=== PATIENT | female | born 1995 ===

== ENCOUNTER 2016-09-09 12:03 | Emergency (ER) | payer MEDICAID ==
--- NOTE | 2016-09-09 13:20 | C.PDOC ---
History Of Present Illness 21 yr old female presents to the ER with complaints of crampy abdominal pain, vomiting, generalized malaise and dizziness for the past 2 days. Patient reports irregular menses, LMP was 2 months ago. Patient states she took a home test 3 weeks ago which was negative. Patient denies fever, chest pain , SOB, nausea, diarrhea, dysuria, vaginal discharge or bleeding. Time Seen by Provider: 09/09/16 12:19 Chief Complaint (Nursing): Abdominal Pain History Per: Patient History/Exam Limitations: no limitations Onset/Duration Of Symptoms: Days (2) Current Symptoms Are (Timing): Still Present Past Medical History Reviewed: Historical Data, Nursing Documentation, Vital Signs Vital Signs: Last Vital Signs Temp 98.3 F 09/09/16 16:29 Pulse 66 09/09/16 16:29 Resp 18 09/09/16 16:29 BP 100/54 L 09/09/16 16:29 Pulse Ox 100 09/09/16 16:29 - Medical History PMH: Anxiety Family History: States: No Known Family Hx - Social History Hx Tobacco Use: Yes Hx Alcohol Use: Yes Hx Substance Use: No - Immunization History Hx Tetanus Toxoid Vaccination: No Hx Influenza Vaccination: No Hx Pneumococcal Vaccination: No Review Of Systems Constitutional: Positive for: Malaise (Generalized). Negative for: Fever Cardiovascular: Negative for: Chest Pain Respiratory: Negative for: Shortness of Breath Gastrointestinal: Positive for: Vomiting, Abdominal Pain. Negative for: Nausea , Diarrhea Genitourinary: Negative for: Dysuria, Vaginal Discharge, Vaginal Bleeding Neurological: Positive for: Dizziness Physical Exam - Physical Exam Appears: Non-toxic, No Acute Distress Skin: Warm, Dry, No Rash Head: Atraumatic, Normacephalic Eye(s): bilateral: Normal Inspection, PERRL, EOMI Oral Mucosa: Moist Neck: Normal, Normal ROM, No Supple Chest: Symmetrical, No Tenderness Cardiovascular: Rhythm Regular, No Murmur Respiratory: Normal Breath Sounds, No Rales, No Rhonchi, No Stridor, No Wheezing Gastrointestinal/Abdominal: Soft, Tenderness (Diffuse but concentrated to superpubic and epigastric ), No Guarding, No Rebound Back: CVA Tenderness (Right ) Extremity: Normal ROM, No Swelling Neurological/Psych: Oriented x3, Normal Speech, Normal Cognition ED Course And Treatment - Laboratory Results Result Diagrams: 09/09/16 13:28 09/09/16 13:28 O2 Sat by Pulse Oximetry: 100 (RA ) Pulse Ox Interpretation: Normal - CT Scan/US US - Trasvaginal Other Rad Studies (CT/US): Read By Radiologist, Radiology Report Reviewed CT/US Interpretation: Indication: Abdominal pain. Comparison: Ob transvaginal ultrasound performed 02/11/16. Technique: Real-time transabdominal pelvic ultrasound was performed. In addition a transvaginal pelvic ultrasound was necessary to better depict pelvic anatomy. Findings: The uterus measures approximately 10.5 x 5.6 x 8.0 cm. Cervix length measures approximately 3.8 cm. There is a single intrauterine fetus present. 1 mm yolk sac. The gestational sac measures 1.6 and is compatible with a gestational age of 5 weeks 6 days. The crown-rump length measures 0.3 cm and is compatible with a gestational age of 5 weeks 6 days. There is heart motion which measured 111.2 BPM. The right ovary measures 3.3 x 1.7 x 3.4 cm. The left ovary measures 3.6 x 2.3 x 3.0 cm. Blood flow was demonstrated to both ovaries. Impression: Live single intrauterine with estimated gestational age 5 weeks 6 days. heart rate 111.2 bpm. Advise an anomaly screen at 16-18 weeks gestational age. Medical Decision Making Medical Decision Making: PLAN: * US - Transvaginal * CBC * CMP * BETA * HCG * Urinalysis * Pepcid IVP * Dextrose IV 412 pm pt with +iup, no cysts, still with mild left lower quad tender, no rebound or guarding. will d/c with precaution, f/u obgyn nurse theresa. Disposition Counseled Patient/Family Regarding: Studies Performed, Diagnosis, Need For Followup, Rx Given - Disposition Referrals: [facility] [Outside] [facility] [Outside] Disposition: HOME/ ROUTINE Disposition Time: 16:14 Condition: STABLE Additional Instructions: Follow up with [facility] as soon as possible; call [facility] to help you make an appointment. Drink increased fluids. Return to ER for any worse pain, dizziness. fainting. vaginal bleeding or other cocnerns. Prescriptions: 21/Iron Fu/Folic Acid [ Complete Caplet] 1 each PO DAILY #30 tablet Instructions: (ED) Forms: [facility] (Kazakh), General Discharge Instructions Print Language: SLOVENIAN - Clinical Impression Clinical Impression: at early stage - PA / GRANITE SETTER / Resident Statement MD/DO has reviewed & agrees with the documentation as recorded. - Scribe Statement The provider has reviewed the documentation as recorded by the Scribe Lashae Rushing All medical record entries made by the Scribe were at my direction and personally dictated by me. I have reviewed the chart and agree that the record accurately reflects my personal performance of the history, physical exam, medical decision making, and the department course for this patient. I have also personally directed, reviewed, and agree with the discharge instructions and disposition.
[2016-09-09 13:35] LABS: BASO % 0.8 % (0.0-2.0); EOS # 0.2 K/uL (0.0-0.7); EOS % 3.7 % (0.0-4.0); HEMOGLOBIN 11.2 g/dL (11.0-16.0); LYMPH % 34.6 % (20.0-40.0); MEAN CELL VOLUME 92.9 fL (81.0-99.0); MEAN CORPUSCULAR HGB CONC 33.4 g/dL (33.0-37.0); MEAN PLATELET VOLUME 9.2 fL (7.2-11.7); MONO # 0.6 K/uL (0.0-0.8); MONO % 10.4 % (0.0-10.0); NEUT % 50.5 % (50.0-75.0); NRBC % 0.1 % (0.0-2.0); RBC 3.62 Mil/uL (3.80-5.20); RED CELL DISTRIBUTION WIDTH 12.2 % (11.5-14.5); WHITE BLOOD COUNT 5.9 K/uL (4.8-10.8)
[2016-09-09 13:40] LABS: HCG,QUALITATIVE URINE POSITIVE (NEGATIVE)
[2016-09-09 13:43] LABS: ALBUMIN 3.9 g/dL (3.5-5.0); SQUAMOUS EPITHIAL 17 /hpf (0-5); URINE BILIRUBIN NEGATIVE (NEGATIVE); URINE BLOOD NEGATIVE (NEGATIVE); URINE CLARITY Clear (Clear); URINE COLOR Yellow (YELLOW); URINE GLUCOSE (UA) NORMAL (Normal); URINE LEUKOCYTE ESTERASE NEG Leu/uL (Negative); URINE NITRATE NEGATIVE (NEGATIVE); URINE PROTEIN NEGATIVE (NEGATIVE)
[2016-09-09] MEDS ORDERED: Dextrose 5%/0.9% NS 1,000 ML IV ONE (13:44)
[2016-09-09 13:46] LABS: GFR AFRICAN-AMERICAN > 60; GFR NON-AFRICAN AMERICAN > 60
[2016-09-09 13:47] LABS: ALB/GLOB RATIO 1.5 (1.0-2.1); ALT/SGPT 22 U/L (9-52); AST/SGOT 14 U/L (14-36); BLOOD UREA NITROGEN 5 mg/dL (7-17); CALCIUM 8.8 mg/dl (8.6-10.4); LIPASE 47 U/L (23-300)
[2016-09-09 14:23] VITALS: O2SAT 100
--- NOTE | 2016-09-09 14:50 | US ---
Indication: Abdominal pain Comparison: Ob transvaginal ultrasound performed 02/11/16 Technique: Real-time transabdominal pelvic ultrasound was performed. In addition a transvaginal pelvic ultrasound was necessary to better depict pelvic anatomy. Findings: The uterus measures approximately 10.5 x 5.6 x 8.0 cm. Cervix length measures approximately 3.8 cm. There is a single intrauterine fetus present. 1 mm yolk sac. The gestational sac measures 1.6 and is compatible with a gestational age of 5 weeks 6 days. The crown-rump length measures 0.3 cm and is compatible with a gestational age of 5 weeks 6 days. There is heart motion which measured 111.2 BPM. The right ovary measures 3.3 x 1.7 x 3.4 cm. The left ovary measures 3.6 x 2.3 x 3.0 cm. Blood flow was demonstrated to both ovaries. Impression: Live single intrauterine with estimated gestational age 5 weeks 6 days. heart rate 111.2 bpm. Advise an anomaly screen at 16-18 weeks gestational age
[2016-09-09 16:30] VITALS: BP 100/54; PULSE 66; RESP 18; TEMP 98.3
== END 2016-09-09 16:32 | disposition home or self-care (01) ==
LOC: C.ER 12:03
DX: O26.891 Other specified pregnancy related conditions, first trimester (principal); Z3A.01 Less than 8 weeks gestation of pregnancy
CPT/HCPCS: 76805; 76817; 80053; 81001; 82009; 83690; 84702; 84703; 85025; 87086; 96361; 96374; 99284; J7042

== ENCOUNTER 2016-09-15 17:55 | Emergency (ER) | payer MEDICAID ==
[2016-09-15 18:07] VITALS: RESP 20; TEMP 98.1; O2SAT 100
[2016-09-15] MEDS ORDERED: Sodium Chloride 0.9% 1,000 ML IV ONE ×2 (18:13→20:10)
--- NOTE | 2016-09-15 18:13 | C.PDOC ---
History Of Present Illness Patient is a 21 year old female, [id number], presents to the Emergency Department for evaluation of nausea, multiple episodes of vomiting, and suprapubic abdominal pain for the past several days. Patient states that she recently found out she was 5 weeks . Notes having 6 episodes of vomiting yesterday and 2 episodes today. States she is not tolerating any PO intake. Patient also complains of dizziness, and states she feels like she will fall. Otherwise, denies any vaginal discharge, vaginal bleeding, diarrhea, urinary symptoms, headache, fever, chills, or any other associated symptoms at this time. Chief Complaint (Nursing): Abdominal Pain History Per: Patient History/Exam Limitations: no limitations Onset/Duration Of Symptoms: Days (3) Current Symptoms Are (Timing): Still Present Severity: Severe Pain Scale Rating Of: 8 Location Of Pain/Discomfort: Suprapubic Radiation Of Pain To:: None Quality Of Discomfort: "Pain" Associated Symptoms: Nausea, Vomiting. denies: Fever, Chills, Diarrhea, Loss Of Appetite, Back Pain, Chest Pain, Constipation, Urinary Symptoms Exacerbating Factors: None Alleviating Factors: None Recent travel outside of the [place]: No Additional History Per: Patient Abnormal Vaginal Bleeding: No : 4 Para: 1 Miscarriage: 1 Past Medical History Reviewed: Historical Data, Nursing Documentation, Vital Signs Vital Signs: Last Vital Signs Temp 98.1 F 09/15/16 18:01 Pulse 72 09/15/16 18:01 Resp 20 09/15/16 18:01 BP 111/74 09/15/16 18:01 Pulse Ox 100 09/15/16 18:38 - Medical History PMH: Anxiety Denies: Diabetes, Hepatitis, HIV, HTN, Seizures, Sexually Transmitted Disease Family History: States: Unknown Family Hx - Social History Hx Tobacco Use: Yes Hx Alcohol Use: Yes Hx Substance Use: No - Immunization History Hx Tetanus Toxoid Vaccination: No Hx Influenza Vaccination: No Hx Pneumococcal Vaccination: No Review Of Systems Except As Marked, All Systems Reviewed And Found Negative. Constitutional: Negative for: Fever, Chills Cardiovascular: Negative for: Chest Pain, Palpitations Respiratory: Negative for: Cough, Shortness of Breath Gastrointestinal: Positive for: Nausea, Vomiting, Abdominal Pain. Negative for : Diarrhea, Constipation Genitourinary: Negative for: Dysuria, Frequency, Incontinence, Hematuria, Vaginal Discharge, Vaginal Bleeding Musculoskeletal: Negative for: Neck Pain, Back Pain Skin: Negative for: Rash, Bruising Neurological: Positive for: Dizziness. Negative for: Weakness, Numbness, Headache Physical Exam - Physical Exam Appears: Non-toxic, No Acute Distress Skin: Normal Color, Warm, Dry Head: Atraumatic, Normacephalic Eye(s): bilateral: Normal Inspection Oral Mucosa: Moist Neck: Normal ROM, Supple Cardiovascular: Rhythm Regular, No Murmur Respiratory: Normal Breath Sounds, No Rales, No Rhonchi, No Wheezing Gastrointestinal/Abdominal: Normal Exam, Soft, No Tenderness, No Guarding, No Rebound Back: Normal Inspection, No CVA Tenderness Extremity: Bilateral: Atraumatic, Normal ROM Neurological/Psych: Oriented x3, Normal Speech, Normal Cognition ED Course And Treatment O2 Sat by Pulse Oximetry: 100 (RA) Pulse Ox Interpretation: Normal Medical Decision Making Medical Decision Making: Impression: 21 year old female, [id number], presents to ED for evaluation of nausea, multiple episodes of vomiting, and suprapubic abdominal pain for the past several days. Plan: * Blood work * Urinalysis * Zofran * Pepcid * IV fluids * Reassess and disposition Progress note: Patient is resting comfortably, abdomen remains soft, and non- tender. Disposition - Disposition Disposition Time: 18:38 Condition: STABLE Forms: [facility] (Nauruan) - POA Present On Arrival: None - Clinical Impression Clinical Impression: Hyperemesis gravidarum - Scribe Statement The provider has reviewed the documentation as recorded by the Alice Nelson All medical record entries made by the Alice were at my direction and personally dictated by me. I have reviewed the chart and agree that the record accurately reflects my personal performance of the history, physical exam, medical decision making, and the department course for this patient. I have also personally directed, reviewed, and agree with the discharge instructions and disposition. Physician Patient Turnover Patient Signed Over To: Afsaneh Lewis Handoff Comments: patient with vomiting, hyperemesis, pending labs, IV fluids, re-eval
[2016-09-15] MEDS ORDERED: Sodium Chloride 0.9% 1,000 ML ONE ×2 (18:32→20:20)
[2016-09-15 18:55] LABS: SQUAMOUS EPITHIAL 16 /hpf (0-5); URINE AMORPHOUS SEDIMENT OCC /ul (<OCC); URINE BACTERIA FEW (<OCC); URINE BILIRUBIN NEGATIVE (NEGATIVE); URINE BLOOD NEGATIVE (NEGATIVE); URINE CLARITY Turbid (Clear); URINE COLOR Amber (YELLOW); URINE GLUCOSE (UA) NORMAL (Normal); URINE NITRATE NEGATIVE (NEGATIVE); URINE PROTEIN 1+ mg/dL (NEGATIVE); URINE UROBILINOGEN NORMAL mg/dL (0.2-1.0)
[2016-09-15 18:56] LABS: URINE LEUKOCYTE ESTERASE 1+ Leu/uL (Negative)
[2016-09-15 21:37] VITALS: BP 112/65; PULSE 68
== END 2016-09-15 21:34 | disposition home or self-care (01) ==
LOC: C.ER 17:55
DX: O21.0 Mild hyperemesis gravidarum (principal); O23.41 Unspecified infection of urinary tract in pregnancy, first trimester; Z3A.01 Less than 8 weeks gestation of pregnancy
CPT/HCPCS: 81001; 82009; 84702; 84703; 96374; 96375; 99284; J2405; J2765; J7040

== ENCOUNTER 2016-10-09 08:37 | Emergency (ER) | payer MEDICAID ==
[2016-10-09] MEDS ORDERED: Sodium Chloride 0.9% 1,000 ML IV ONE (08:53)
[2016-10-09 08:57] VITALS: BP 113/70; PULSE 83; RESP 18; TEMP 98.2; O2SAT 100
--- NOTE | 2016-10-09 08:59 | C.PDOC ---
History Of Present Illness 21 yr old female who is 9 weeks , presents to the ER with complaints of anxiety and vomiting for entire . Patient has multiple visits for the same complaint and has been seen and evaluated by crisis. Patient was instructed to follow up w ith BAKERY MANAGER but states she has been unable to. Also states she is unable to afford anti nausea medicine. Patient reports of persistent nausea and vomiting in the morning since becoming . patient is requesting Benzodiazepine for her anxiety. Denies fever, chest pain, SOB, abdominal pain, dysuria, vaginal bleeding or discharge. Denies homicidal or suicidal ideation Time Seen by Provider: 10/09/16 08:39 Chief Complaint (Nursing): Anxiety History Per: Patient History/Exam Limitations: no limitations Onset/Duration Of Symptoms: Persistent Current Symptoms Are (Timing): Still Present Past Medical History Reviewed: Historical Data, Nursing Documentation, Vital Signs Vital Signs: Last Vital Signs Temp 98.2 F 10/09/16 08:52 Pulse 83 10/09/16 08:52 Resp 18 10/09/16 08:52 BP 113/70 10/09/16 08:52 Pulse Ox 100 10/09/16 08:52 - Medical History PMH: Anxiety Family History: States: No Known Family Hx - Social History Hx Tobacco Use: Yes Hx Alcohol Use: Yes Hx Substance Use: No - Immunization History Hx Tetanus Toxoid Vaccination: No Hx Influenza Vaccination: No Hx Pneumococcal Vaccination: No Review Of Systems Except As Marked, All Systems Reviewed And Found Negative. Constitutional: Negative for: Fever Cardiovascular: Negative for: Chest Pain Respiratory: Negative for: Shortness of Breath Gastrointestinal: Positive for: Nausea, Vomiting. Negative for: Abdominal Pain Genitourinary: Negative for: Dysuria, Vaginal Discharge, Vaginal Bleeding Physical Exam - Physical Exam Appears: Non-toxic, No Acute Distress Skin: Warm, Dry, No Rash Head: Atraumatic, Normacephalic Oral Mucosa: Moist Chest: Symmetrical, No Tenderness Cardiovascular: Rhythm Regular, No Murmur Respiratory: Normal Breath Sounds, No Rales, No Rhonchi, No Wheezing Gastrointestinal/Abdominal: Normal Exam, Soft, No Tenderness, No Guarding, No Rebound Extremity: Normal ROM, No Swelling Neurological/Psych: Oriented x3, Normal Speech, Normal Motor ED Course And Treatment - Laboratory Results Result Diagrams: 10/09/16 09:18 10/09/16 09:18 Progress Note: Labs to rule out dehydration. Patient instructed to follow up with BAKERY MANAGER. Discussed with patient in details the risks and benefits of using anti-emetics. Medical Decision Making Medical Decision Making: PLAN: * CBC * CMP * Reglan IVP * Sodium Chloride IV Patient requesting to shower. 9:47 Potassium and phosphours replacement ordered 9:53 Patient got out of the shower and now reports that she wants to be discharged. She reports that her symptoms have improved. She reports that she will follow- up with sales floor team member and PMD Disposition - Disposition Disposition: HOME/ ROUTINE Disposition Time: 09:54 Condition: FAIR Additional Instructions: Return to ED if condition worsens. Follow-up with PMD within 2 days. Follow-up with your OB within 2 days. Eat food rich in potassium and phosphorous- like bananas. - Clinical Impression Clinical Impression: Vomiting affecting - Scribe Statement The provider has reviewed the documentation as recorded by the Alice Rushing Provider Attestation: All medical record entries made by the Maximusibandrews were at my direction and personally dictated by me. I have reviewed the chart and agree that the record accurately reflects my personal performance of the history, physical exam, medical decision making, and the department course for this patient. I have also personally directed, reviewed, and agree with the discharge instructions and disposition.
[2016-10-09] MEDS ORDERED: Sodium Chloride 0.9% 1,000 ML ONE (09:00)
[2016-10-09 09:24] LABS: BASO % 0.4 % (0.0-2.0); EOS % 0.2 % (0.0-4.0); HEMATOCRIT 35.1 % (34.0-47.0); LYMPH # 0.9 K/uL (1.0-4.3); LYMPH % 12.4 % (20.0-40.0); MEAN CELL VOLUME 91.2 fL (81.0-99.0); MEAN CORPUSCULAR HEMOGLOBIN 31.1 pg (27.0-31.0); MEAN CORPUSCULAR HGB CONC 34.1 g/dL (33.0-37.0); MEAN PLATELET VOLUME 8.9 fL (7.2-11.7); MONO # 0.3 K/uL (0.0-0.8); RED CELL DISTRIBUTION WIDTH 12.3 % (11.5-14.5); WHITE BLOOD COUNT 7.1 K/uL (4.8-10.8)
[2016-10-09 09:33] LABS: CHLORIDE 103 mmol/L (98-107); POTASSIUM 3.1 mmol/L (3.6-5.2); SODIUM 137 mmol/L (132-148)
[2016-10-09 09:35] LABS: ALB/GLOB RATIO 1.4 (1.0-2.1); ALKALINE PHOSPHATASE 38 U/L (38-126); AST/SGOT 25 U/L (14-36); BILIRUBIN,TOTAL 0.9 mg/dL (0.2-1.3); CARBON DIOXIDE 15 mmol/L (22-30); GFR AFRICAN-AMERICAN > 60; TOTAL PROTEIN 7.4 g/dL (6.3-8.3)
[2016-10-09 09:36] LABS: ALT/SGPT 25 U/L (9-52); BLOOD UREA NITROGEN 7 mg/dL (7-17); CALCIUM 9.8 mg/dl (8.6-10.4); GLUCOSE,RANDOM 133 mg/dL (65-105); MAGNESIUM 1.8 mg/dL (1.6-2.3); PHOSPHOROUS 1.5 mg/dL (2.5-4.5)
[2016-10-09] MEDS ORDERED: Potassium & Sodium Phosphate PO STA (09:38)
[2016-10-09] MEDS ORDERED: Potassium Chloride 20 mEq ER Tab PO STA (09:38)
== END 2016-10-09 10:04 | disposition home or self-care (01) ==
LOC: C.ER 08:37
DX: O21.1 Hyperemesis gravidarum with metabolic disturbance (principal); Z3A.09 9 weeks gestation of pregnancy
CPT/HCPCS: 80053; 83735; 84100; 85025; 96361; 96374; 99283; J2765; J7040

== ENCOUNTER 2016-10-13 12:13 | Emergency (ER) | payer MEDICAID ==
[2016-10-13 12:17] VITALS: BP 108/70; PULSE 75; RESP 18; TEMP 98.5; O2SAT 100
--- NOTE | 2016-10-13 15:46 | C.PDOC ---
History Of Present Illness Patient left without being seen Time Seen by Provider: 10/13/16 12:43 Chief Complaint (Nursing): Abdominal Pain Past Medical History Vital Signs: Last Vital Signs Temp 98.5 F 10/13/16 12:16 Pulse 75 10/13/16 12:16 Resp 18 10/13/16 12:16 BP 108/70 10/13/16 12:16 Pulse Ox 100 10/13/16 12:16 - Medical History PMH: Anxiety Denies: Diabetes, Hepatitis, HIV, HTN, Seizures, Sexually Transmitted Disease Family History: States: Unknown Family Hx - Social History Hx Tobacco Use: Yes Hx Alcohol Use: Yes Hx Substance Use: No - Immunization History Hx Tetanus Toxoid Vaccination: No Hx Influenza Vaccination: No Hx Pneumococcal Vaccination: No ED Course And Treatment O2 Sat by Pulse Oximetry: 100 Disposition - Disposition Disposition: LEFT W/O BEING SEEN - ER ONLY Disposition Time: 13:00 Condition: UNKNOWN Forms: [facility] (Yoruba) - Clinical Impression Clinical Impression: Abdominal pain
== END 2016-10-13 12:50 | disposition left against medical advice (07) ==
LOC: C.ER 12:13
DX: R10.9 Unspecified abdominal pain (principal); Z02.9 Encounter for administrative examinations, unspecified

== ENCOUNTER 2016-10-24 22:08 | Emergency (ER) | payer MEDICAID ==
--- NOTE | 2016-10-24 23:11 | C.PDOC ---
History Of Present Illness Pt c/o vaginal spotting. Time Seen by Provider: 10/24/16 22:32 Chief Complaint (Nursing): Female Genitourinary History Per: Patient Onset/Duration Of Symptoms: Hrs (today) Current Symptoms Are (Timing): Still Present Severity: Mild Quality Of Discomfort: Unable To Describe Alleviating Factors: None Additional History Per: Prior Records Abnormal Vaginal Bleeding: Yes Last Menstral Period: 13 weeks Past Medical History Reviewed: Historical Data, Nursing Documentation, Vital Signs Vital Signs: Last Vital Signs Temp 97.9 F 10/24/16 22:23 Pulse 86 10/24/16 22:23 Resp 18 10/24/16 22:23 BP 107/68 10/24/16 22:23 Pulse Ox 100 10/24/16 22:23 - Medical History PMH: Anxiety Family History: States: Unknown Family Hx - Social History Hx Tobacco Use: No Hx Alcohol Use: No Hx Substance Use: No - Immunization History Hx Tetanus Toxoid Vaccination: No Hx Influenza Vaccination: No Hx Pneumococcal Vaccination: No Review Of Systems Except As Marked, All Systems Reviewed And Found Negative. Constitutional: Negative for: Fever, Weakness Cardiovascular: Negative for: Chest Pain Respiratory: Negative for: Shortness of Breath Gastrointestinal: Negative for: Vomiting Genitourinary: Positive for: Vaginal Bleeding (spotting). Negative for: Dysuria Musculoskeletal: Negative for: Neck Pain Skin: Negative for: Rash Neurological: Negative for: Weakness, Numbness Physical Exam - Physical Exam Appears: Non-toxic, No Acute Distress Skin: Normal Color, Warm, Dry, No Rash Head: Atraumatic, Normacephalic Eye(s): bilateral: Normal Inspection, PERRL, EOMI Neck: Normal ROM, Supple Cardiovascular: Rhythm Regular Respiratory: Normal Breath Sounds, No Accessory Muscle Use Gastrointestinal/Abdominal: Soft, No Tenderness Back: No CVA Tenderness Extremity: Normal ROM Neurological/Psych: Oriented x3, Normal Motor, Normal Sensation ED Course And Treatment O2 Sat by Pulse Oximetry: 100 Pulse Ox Interpretation: Normal - CT Scan/US Limited TA bedside pelvic US Other Rad Studies (CT/US): U/S Performed By Nj CT/US Interpretation: No FF. Live IUP. Disposition Counseled Patient/Family Regarding: Studies Performed, Diagnosis, Need For Followup - Disposition Referrals: Orvilel Pope MD [Medical Doctor] - Disposition: HOME/ ROUTINE Disposition Time: 23:11 Condition: STABLE Additional Instructions: Follow up with your Residential Property Consultant doctor for further evaluation and treatment. Return to the ER if you develop fever, vomiting, abdominal pain, dizziness, heavy bleeding, worsening of symptoms or if you have any other concerns. Instructions: Threatened Miscarriage (ED) Forms: [facility] (Uruguayan) Print Language: BENGALI - Clinical Impression Clinical Impression: Threatened
[2016-10-24 23:22] VITALS: BP 146/79; PULSE 78; RESP 16; TEMP 98; O2SAT 98
== END 2016-10-24 23:24 | disposition home or self-care (01) ==
LOC: C.ER 22:08
DX: O20.0 Threatened abortion (principal); Z3A.13 13 weeks gestation of pregnancy

== ENCOUNTER 2017-01-21 15:26 | Emergency (ER) | payer MEDICAID ==
[2017-01-21 15:50] VITALS: BMI 24.5
[2017-01-21 16:33] LABS: RBC URINE 2 /hpf (0-3); URINE BACTERIA RARE (<OCC); URINE BILIRUBIN NEGATIVE (NEGATIVE); URINE BLOOD NEGATIVE (NEGATIVE); URINE COLOR Yellow (YELLOW); URINE GLUCOSE (UA) NORMAL (Normal); URINE KETONE TRACE mg/dL (NEGATIVE); URINE LEUKOCYTE ESTERASE NEG Leu/uL (Negative); URINE PROTEIN NEGATIVE (NEGATIVE); URINE UROBILINOGEN NORMAL mg/dL (0.2-1.0); WBC URINE 3 /hpf (0-5)
--- NOTE | 2017-01-21 21:32 | OBHP ---
Datetime: 01/21/2017 16:04 IP Adm Impression: , intrauterine IP Chief Complaint Other: Abdominal pain Admit Comment, IP Provider: Patient is a 21 year old at 26w0d by 13w5d lefty with LUPE 04/29/17 presents to L+D complaining of lower abdominal pain that started 2 weeks ago. States that she feels pressure in her vagina which causes her to walk differently. Pain is worse when at work and on her fe et overnight. Also states seeing dark red vaginal spotting in her underwear for 3 days. Admits to hav ing intercourse 2-3 days ago. Patient states that she noticed bleeding from her left nipple that she noticed on her shirt. Only happened one time today. Denies any trauma. Endorses +FM, denies LOF. Coretta ent goes to [facility] for care, last appointment was 1 month ago. Issues: Denies OB Hx: 1. 2010 at term, 6lbs 7oz, no complications 2. 2011 TOP 3. 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 Will discharge home with pret erm labor precautions. F/U with clinic tomorrow as scheduled. Discussed with attending. Attending Note (1700 hours): patient was seen, evaluated and examined by me with the Resident. I agree with the documentaiton of events as described above. Patient encouraged to invest in maternity support belt. Also explained that evaluation of bloody discharge from nipple may involve breast ultr asound and referral to breast surgeon. Patient encouraged to discuss this new occurrence at her prena kasia visit tomorrow. Patient expressed an understanding and agrees. Clinically stable. Plan: 1) as above. FHR - Baseline A Provider: 145 Contraction Comments Provider: none Comments, ACOG Physical Exam: VSS Gen: AAOX3 CV: RRR Breast: No palpable masses, no nipple discharge, symmetrical Lungs: CTA B/L Abd: Soft, gravid Ext: No clubbing, cyanosis, edema SVE: closed/thick/high SSE: No active bleeding, + cottage cheese like discharge EGA AdmitDate IP: 26.3 IP Chief Complaint: Vaginal bleeding; Other NICHD Variability Prov Fetus A: Moderate 6-25bpm NICHD Accel Fetus A IP Provider: [id number] (Annotations: Data stored by CPN on behalf of user) FHR Category Provider Fetus A: Category I NICHD Decel Fetus A IP Provider: None Dilatation, Provider: closed Effacement, Provider: thick Station, Provider: high
[2017-01-21 21:54] VITALS: PULSE 67; O2SAT 100
== END 2017-01-21 17:20 | disposition home or self-care (01) ==
LOC: C.EROB 15:26
DX: O26.852 Spotting complicating pregnancy, second trimester (principal); Z3A.26 26 weeks gestation of pregnancy

== ENCOUNTER 2017-02-17 14:18 | Emergency (ER) | payer MEDICAID ==
[2017-02-17] MEDS ORDERED: Lactated Ringer's 1,000 ML IV ONE (14:55)
[2017-02-17 15:09] VITALS: BMI 25.4
[2017-02-17 15:22] LABS: BASO % 0.3 % (0.0-2.0); EOS % 0.5 % (0.0-4.0); HEMOGLOBIN 11.7 g/dL (11.0-16.0); LYMPH # 0.8 K/uL (1.0-4.3); LYMPH % 7.8 % (20.0-40.0); MEAN CELL VOLUME 90.5 fL (81.0-99.0); MEAN CORPUSCULAR HEMOGLOBIN 31.2 pg (27.0-31.0); MEAN CORPUSCULAR HGB CONC 34.5 g/dL (33.0-37.0); MEAN PLATELET VOLUME 11.2 fL (7.2-11.7); MONO # 0.4 K/uL (0.0-0.8); NEUT # 9.4 K/uL (1.8-7.0); NEUT % 87.4 % (50.0-75.0); PLATELET COUNT 162 K/uL (130-400); RBC 3.75 Mil/uL (3.80-5.20); RED CELL DISTRIBUTION WIDTH 11.8 % (11.5-14.5); WHITE BLOOD COUNT 10.7 K/uL (4.8-10.8)
[2017-02-17 15:31] LABS: SQUAMOUS EPITHIAL 4 /hpf (0-5); URINE BILIRUBIN NEGATIVE (NEGATIVE); URINE BLOOD NEGATIVE (NEGATIVE); URINE CLARITY Clear (Clear); URINE COLOR Yellow (YELLOW); URINE GLUCOSE (UA) NORMAL (Normal); URINE LEUKOCYTE ESTERASE TRACE Leu/uL (Negative); URINE NITRATE NEGATIVE (NEGATIVE); URINE PROTEIN NEGATIVE (NEGATIVE); URINE UROBILINOGEN NORMAL mg/dL (0.2-1.0)
[2017-02-17 15:43] LABS: LYMPHOCYTE 8 % (20-40); MONOCYTE 4 % (0-10); NEUTROPHIL 88 % (50-75); TOTAL CELLS COUNTED 100
[2017-02-17 15:44] LABS: PLATELET ESTIMATE NORMAL (NORMAL)
[2017-02-17 15:46] LABS: ALB/GLOB RATIO 1.1 (1.0-2.1); ALBUMIN 3.7 g/dL (3.5-5.0); ALT/SGPT 17 U/L (9-52); AST/SGOT 34 U/L (14-36); BLOOD UREA NITROGEN 6 mg/dL (7-17); CALCIUM 8.3 mg/dl (8.6-10.4); GFR AFRICAN-AMERICAN > 60; GFR NON-AFRICAN AMERICAN > 60
[2017-02-17] MEDS ORDERED: Dextrose 5%/Lactated Ringer's 1,000 ML IV SCH (16:15)
--- NOTE | 2017-02-17 17:24 | OBHP ---
Datetime: 02/17/2017 16:02 IP Adm Impression: , intrauterine ; No Active Labor IP Chief Complaint Other: nausea and vomiting, abdominal pain IP Admit Plan: Discharge home Admit Comment, IP Provider: chief compalint-nausea, vomiting and lower abdominal pain HPI 21 y/o at 29.2 wga with c/o nausea and vomiting since last night.Patient states that what ever she eats she vomits.She si toelratingw ater.denies blood in vomitus.also feels lower abdominal d iscofmort.had soreness in the vagina last night but resolved now P Denies any trauma. Endorses +FM, denies LOF. Patient goes to [facility] for care Issues: Denies OB Hx: 1. 2010 at term, 6lbs 7oz, no complications 2. 2011 TOP 3. 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: LMP - (unsure) Triad - 12 x irregular x 1 day Denies hx of fibroids, ovarian cysts, STIs Denies hx of abnormal pap smears Allergies: NKDA Medications: PNV, Iron Medical Hx: Anemia, Anxiety Surgical Hx: D+C Social Hx: Denies tobacco, alcohol use, smokes marijuana (unk amount), lives in [facility] for past 2 months Family Hx: Mother age 41 - healthy; Father age 50 - DM PE: See above A/P: 21 year old [id number] presents for nausea, vomiting, abdominal pain -cervix closed -iv fludis, check labs and UA 5.20 pm patient feels better with iv fludis and zofrn.feels hungry and wants to ewat labs reviewed plan-discharge home -follow up in clinic in 1 week Pelvic Type - PN: Adequate Extremities - PN: Normal Abdomen - PN: Normal Back - PN: Normal Lungs - PN: Normal Heart - PN: Normal Neurologic - PN: Normal General - PN: Normal Presentation-Admit: Vertex Contraction Comments Provider: none EGA AdmitDate IP: 29.2 Vital Signs Provider: Reviewed IP Chief Complaint: Other FHR Category Provider Fetus A: Category I Dilatation, Provider: 0 Genitourinary Exam: Normal DTRs - PN: Normal
[2017-02-17 21:52] VITALS: BP 113/74; PULSE 100; RESP 18; TEMP 97; O2SAT 99
== END 2017-02-17 17:30 | disposition home or self-care (01) ==
LOC: C.EROB 14:18
DX: O21.2 Late vomiting of pregnancy (principal); O26.893 Other specified pregnancy related conditions, third trimester; R10.30 Lower abdominal pain, unspecified; Z3A.29 29 weeks gestation of pregnancy
CPT/HCPCS: 80053; 81001; 85025; 96374; 99283; J2405; J7120

== ENCOUNTER 2017-03-16 15:56 | Emergency (ER) | payer MEDICAID ==
[2017-03-16 17:31] LABS: BASO % 0.4 % (0.0-2.0); EOS % 0.3 % (0.0-4.0); HEMOGLOBIN 11.2 g/dL (11.0-16.0); LYMPH # 1.2 K/uL (1.0-4.3); LYMPH % 24.1 % (20.0-40.0); MEAN CORPUSCULAR HEMOGLOBIN 30.5 pg (27.0-31.0); MEAN CORPUSCULAR HGB CONC 33.9 g/dL (33.0-37.0); MEAN PLATELET VOLUME 11.2 fL (7.2-11.7); MONO # 0.4 K/uL (0.0-0.8); MONO % 8.9 % (0.0-10.0); NEUT # 3.3 K/uL (1.8-7.0); NEUT % 66.3 % (50.0-75.0); NRBC % 0.1 % (0.0-2.0); RBC 3.67 Mil/uL (3.80-5.20); RED CELL DISTRIBUTION WIDTH 12.2 % (11.5-14.5)
[2017-03-16 17:35] LABS: INR 0.9; PROTHROMBIN TIME 9.7 SECONDS (9.7-12.2)
[2017-03-16 17:45] LABS: SQUAMOUS EPITHIAL 25 /hpf (0-5); URINE BACTERIA FEW (<OCC); URINE BILIRUBIN NEGATIVE (NEGATIVE); URINE BLOOD NEGATIVE (NEGATIVE); URINE CLARITY Hazy (Clear); URINE COLOR Yellow (YELLOW); URINE GLUCOSE (UA) NORMAL (Normal); URINE LEUKOCYTE ESTERASE 2+ Leu/uL (Negative); URINE NITRATE NEGATIVE (NEGATIVE); URINE PROTEIN NEGATIVE (NEGATIVE); URINE UROBILINOGEN NORMAL mg/dL (0.2-1.0)
--- NOTE | 2017-03-16 17:54 | OBHP ---
Datetime: 03/16/2017 16:28 IP Adm Impression: , intrauterine IP Chief Complaint Other: Congestion/cough flu like symmtoms Admit Comment, IP Provider: Patient is a 21 year old at 33w1d LUPE 05/03/17 (LMP unsure) prese nts to L+D for flu-like symptoms. Patient states that she started experiencing headaches, cough, jerri estion x 3 days. Also admits to having a sore throat with decreased appetite. Denies any recent sick contacts or recent travel. States that she recently moved to her apartment from a [facility] last week. Denies fevers, chills, blurry vision, SOB, epigastric/RUQ pain, nausea, vomiting, urinary symptoms. E ndorses +FM, denies CTX, LOF, VB. Issues: Denies Patient goes to [facility] for care OB Hx: 1. 2010 at term, male , no complications 2. 2011 IAB 3. 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 Triad: 12 x irregular x 4 hours Denies fibroids, ovarian cysts, STIs Denies abnormal pap smears Allergies: Seasonal allergies Medications: PNV Medical Hx: Migraines Surgical Hx: D+C x 1 Social Hx: Smoked 10cig/day until about 4 months , drinks alcohol occasionally prior to pr egnancy, denies drug use; lives at home with her son Family Hx: Denies PE: See above A/P: 21 year old at 33w1d presents with congestion, cough, headaches, found to have elevat ed BP -Stable, afebrile -CEFM and TOCO -PIH labs -Monitor BPs q30min -Rapid flu -Plan discussed with Dr Cowan lab called influenza b + blood work neg plan dc home tamiflu 75 po bid po hyr cont pnv preecamptic s/s given f/u in clinic in 1week Nella Smith DO PGY-1 Pelvic Type - PN: Adequate Extremities - PN: Normal Abdomen - PN: Normal Back - PN: Normal Breast - PN: Not Done Lungs - PN: Normal Heart - PN: Normal Thyroid - PN: Not Done Neurologic - PN: Normal HEENT - PN: Normal General - PN: Normal FHR - Baseline A Provider: 140 Contraction Comments Provider: none Comments, ACOG Physical Exam: VS: 121/98 75 97.0 Gen: AAOx3 HEENT: unremarkable CV: RRR Lungs: CTA B/L Abd: Soft, gravid Ext: No clubbing, cyanosis, edema; no calf tenderness SVE: Deferred EGA AdmitDate IP: 33.1 Vital Signs Provider: Reviewed; Within Normal Limits IP Chief Complaint: Other NICHD Variability Prov Fetus A: Moderate 6-25bpm NICHD Accel Fetus A IP Provider: 15X15 FHR Category Provider Fetus A: Category I NICHD Decel Fetus A IP Provider: None Genitourinary Exam: Normal DTRs - PN: Normal
--- NOTE | 2017-03-16 17:56 | OBDCSUM ---
Datetime: 03/16/2017 17:54 Discharged to, Provider: Home Follow up at, Provider: 1week Follow up in weeks, Provider: clinic Discharge Comment, Provider: dc home tamiflu 75 po bid po hyr cont pnv preecamptic s/s given f/u in clinic in 1week Discharge Diagnosis Prov Other: 33week pih influenza b
[2017-03-16 17:57] LABS: ALBUMIN 3.6 g/dL (3.5-5.0); ALT/SGPT 26 U/L (9-52); AST/SGOT 24 U/L (14-36); BLOOD UREA NITROGEN 3 mg/dL (7-17); CALCIUM 8.6 mg/dl (8.6-10.4); GFR AFRICAN-AMERICAN > 60; GFR NON-AFRICAN AMERICAN > 60; URIC ACID 3.8 mg/dL (2.2-7.5)
[2017-03-16 23:12] VITALS: BP 118/84; PULSE 68; RESP 22; TEMP 97
== END 2017-03-16 18:45 | disposition home or self-care (01) ==
LOC: C.EROB 15:56
DX: O26.893 Other specified pregnancy related conditions, third trimester (principal); Z3A.33 33 weeks gestation of pregnancy; R05 Cough; R51 Headache

== ENCOUNTER 2017-12-07 08:36 | Emergency (ER) | payer OTHER ==
[2017-12-07 08:36] VITALS: BMI 28.3
[2017-12-07] MEDS ORDERED: Sodium Chloride 0.9% 1,000 ML ONE ×2 (08:54→12:00)
[2017-12-07] MEDS ORDERED: Sodium Chloride 0.9% 1,000 ML IV STA ×2 (09:23→11:51)
[2017-12-07 09:49] LABS: BASO % 0.2 % (0.0-2.0); EOS # 0.1 K/uL (0.0-0.7); EOS % 1.1 % (0.0-4.0); LYMPH # 1.7 K/uL (1.0-4.3); LYMPH % 13.2 % (20.0-40.0); MEAN CELL VOLUME 91.3 fL (81.0-99.0); MEAN CORPUSCULAR HEMOGLOBIN 30.9 pg (27.0-31.0); MEAN CORPUSCULAR HGB CONC 33.8 g/dL (33.0-37.0); MEAN PLATELET VOLUME 9.6 fL (7.2-11.7); MONO % 7.5 % (0.0-10.0); NRBC % 0.1 % (0.0-2.0); RBC 4.53 Mil/uL (3.80-5.20); RED CELL DISTRIBUTION WIDTH 13.7 % (11.5-14.5)
[2017-12-07 09:51] LABS: WHITE BLOOD COUNT 12.8 K/uL (4.8-10.8)
[2017-12-07 10:00] LABS: ALB/GLOB RATIO 1.9 (1.0-2.1); ALBUMIN 5.1 g/dL (3.5-5.0); ALT/SGPT 16 U/L (9-52); AST/SGOT 21 U/L (14-36); BLOOD UREA NITROGEN 8 mg/dL (7-17); CALCIUM 10.3 mg/dl (8.6-10.4); GFR NON-AFRICAN AMERICAN > 60; LIPASE 55 U/L (23-300)
[2017-12-07] MEDS ORDERED: Lactated Ringer's 1,000 ML IV ONE (10:12)
[2017-12-07 10:37] LABS: HCG,QUALITATIVE URINE NEGATIVE (NEGATIVE)
[2017-12-07 10:42] LABS: SQUAMOUS EPITHIAL 22 /hpf (0-5); URINE BACTERIA RARE (<OCC); URINE BILIRUBIN NEGATIVE (NEGATIVE); URINE BLOOD NEGATIVE (NEGATIVE); URINE CLARITY Hazy (Clear); URINE GLUCOSE (UA) NORMAL (Normal); URINE LEUKOCYTE ESTERASE NEG Leu/uL (Negative); URINE PROTEIN 1+ mg/dL (NEGATIVE); URINE UROBILINOGEN NORMAL mg/dL (0.2-1.0)
[2017-12-07 11:07] LABS: URINE COLOR YELLOW (YELLOW)
[2017-12-07] MEDS ORDERED: Lactated Ringer's 1,000 ML ONE (12:00)
[2017-12-07] MEDS ORDERED: Iodixanol 320 MG/ML 100 ML BOTTLE IV ONE (13:29)
--- NOTE | 2017-12-07 14:22 | CT ---
Date of service: 12/07/2017 PROCEDURE: CT Abdomen and Pelvis with contrast HISTORY: abd pain /vomiting COMPARISON: None. TECHNIQUE: Contrast dose: 100 mL Visipaque 320 Radiation dose: Total exam DLP = 523.86 mGy-cm. This CT exam was performed using one or more of the following dose reduction techniques: Automated exposure control, adjustment of the mA and/or kV according to patient size, and/or use of iterative reconstruction technique. FINDINGS: LOWER THORAX: Cluster of nodules in the right lower lobe, likely infectious/inflammatory. Heart size normal. LIVER: Unremarkable. No gross lesion or ductal dilatation. GALLBLADDER AND BILE DUCTS: Unremarkable. PANCREAS: Unremarkable. No gross lesion or ductal dilatation. SPLEEN: Unremarkable. ADRENALS: Unremarkable. No mass. KIDNEYS AND URETERS: Unremarkable. No hydronephrosis. No solid mass. VASCULATURE: Unremarkable. No aortic aneurysm. No aortic atherosclerotic calcification or mural plaque present. BOWEL: Prominence of the colonic wall from the ascending to descending colon which may be related to underdistention. APPENDIX: No findings to suggest acute appendicitis. PERITONEUM: Unremarkable. No free fluid. No free air. LYMPH NODES: Unremarkable. No enlarged lymph nodes. BLADDER: Unremarkable. REPRODUCTIVE: Unremarkable. BONES: No acute fracture. OTHER FINDINGS: None. IMPRESSION: Cluster of nodules in the right lower lobe, likely infectious/inflammatory in etiology. Thickening of the ascending to descending colonic wall which may be infectious/inflammatory in etiology versus related to underdistention. Clinical correlation is recommended.
[2017-12-07 14:32] VITALS: BP 104/70; RESP 20; O2SAT 100
[2017-12-07 14:45] LABS: BARBITURATES, UR NEGATIVE (NEGATIVE); BENZODIAZEPINES, UR NEGATIVE (NEGATIVE); OPIATES, UR NEGATIVE (NEGATIVE); PHENCYCLIDINE, UR NEGATIVE (NEGATIVE)
--- NOTE | 2017-12-07 14:45 | C.PDOC ---
History Of Present Illness 22 year old female presents to the ED for evaluation of abdominal pain, nausea, vomiting and diarrhea which began last night. Patient states she is having an anxiety attack and is hyperventilating in the ED. She denies fever, chills, chest pain. Time Seen by Provider: 12/07/17 08:48 Chief Complaint (Nursing): Abdominal Pain History Per: Patient History/Exam Limitations: no limitations Onset/Duration Of Symptoms: Hrs Current Symptoms Are (Timing): Still Present Additional History Per: Patient Past Medical History Reviewed: Historical Data, Nursing Documentation, Vital Signs Vital Signs: Last Vital Signs Temp 98.9 F 12/07/17 14:32 Pulse 77 12/07/17 14:32 Resp 20 12/07/17 14:32 BP 104/70 12/07/17 14:32 Pulse Ox 100 12/07/17 14:32 - Medical History PMH: Anxiety, Depression Denies: HIV, HTN, Seizures, Sexually Transmitted Disease Surgical History: No Surg Hx - [facility] Procedures DELIVERY OF PRODUCTS OF CONCEPTION, EXTERNAL APPROACH (04/03/17) MONITORING OF POC, CARDIAC RATE, FLOOR LAYER TILE APPROACH (04/03/17) Family History: States: Unknown Family Hx - Social History Hx Tobacco Use: No Hx Alcohol Use: No Hx Substance Use: No - Immunization History Hx Tetanus Toxoid Vaccination: No Hx Influenza Vaccination: No Hx Pneumococcal Vaccination: No Review Of Systems Constitutional: Negative for: Fever, Chills Gastrointestinal: Positive for: Nausea, Vomiting, Abdominal Pain, Diarrhea Physical Exam - Physical Exam Appears: Non-toxic, No Acute Distress, Other (crying, hyperventilating ) Skin: Normal Color, Warm, Dry Head: Atraumatic, Normacephalic Eye(s): bilateral: Normal Inspection Oral Mucosa: Moist Neck: Supple Chest: Symmetrical, No Deformity, No Tenderness Cardiovascular: Rhythm Regular, No Murmur Respiratory: Normal Breath Sounds, No Rales, No Rhonchi, No Wheezing Gastrointestinal/Abdominal: Soft, No Tenderness, No Guarding, No Rebound Extremity: Normal ROM, Capillary Refill (less than 2 seconds ) Neurological/Psych: Oriented x3, Normal Speech, Normal Cognition ED Course And Treatment - Laboratory Results Result Diagrams: 12/07/17 09:43 12/07/17 16:29 O2 Sat by Pulse Oximetry: 100 (on non-rebreather) Pulse Ox Interpretation: Normal - CT Scan/US CT abdomen/pelvis Other Rad Studies (CT/US): Read By Radiologist, Radiology Report Reviewed CT/US Interpretation: Accession No. : [id number]. Patient Name / ID : CHRISTIAN TENA / [id number]. Exam Date : 12/07/2017 13:46:43 ( Approved ). Study Comment : Sex / Age : F / 22Y. Creator : Adelaida Kaiser. Dictator : Chaparro Gama MD. Optical Worker : Mitten Sewer : Chaparro Gama MD. Approver2 : Report Date : 12/07/2017 13:55:17. My Comment : . Date of service: 12/07/2017. PROCEDURE: CT Abdomen and Pelvis with contrast. HISTORY: abd pain /vomiting. COMPARISON: None. TECHNIQUE: Contrast dose: 100 mL Visipaque 320. Radiation dose: Total exam DLP = 523.86 mGy-cm. This CT exam was performed using one or more of the following dose reduction techniques: Automated exposure control, adjustment of the mA and/or kV according to patient size, and/or use of iterative reconstruction technique. FINDINGS: LOWER THORAX: Cluster of nodules in the right lower lobe, likely infectious/inflammatory. Heart size normal. LIVER: Unremarkable. No gross l esion or ductal dilatation. GALLBLADDER AND BILE DUCTS: Unremarkable. PANCREAS: Unremarkable. No gross lesion or ductal dilatation. SPLEEN: Unremarkable. ADRENALS: Unremarkable. No mass. KIDNEYS AND URETERS: Unremarkable. No hydronephrosis. No solid mass. VASCULATURE: Unremarkable. No aortic aneurysm. No aortic atherosclerotic calcification or mural plaque present. BOWEL: Prominence of the colonic wall from the ascending to descending colon which may be related to underdistention. APPENDIX: No findings to suggest acute appendicitis. PERITONEUM: Unremarkable. No free fluid. No free air. LYMPH NODES: Unremarkable. No enlarged lymph nodes. BLADDER: Unremarkable. REPRODUCTIVE: Unremarkable. BONES: No acute fracture. OTHER FINDINGS: None. IMPRESSION: Cluster of nodules in the right lower lobe, likely infectious/inflammatory in etiology. Thickening of the ascending to descending colonic wall which may be infectious/inflammatory in etiology versus related to underdistention. Clinical correlation is recommended. Progress Note: Bloodwork and urinalysis ordered and reviewed. Patient has slightly elevated white blood cell count and Bicarb count of 17. Labs show signs of dehydration. Ativan IVP, Protonix IVP, Reglan IVP, and Zofran IVP given. One liter of lactated ringers IV and two liters od NaCl given. Patient was seen by solid waste collection worker and was given referral for outpatient follow up. Disposition - Disposition Disposition: HOME/ ROUTINE Disposition Time: 17:17 Condition: GOOD Additional Instructions: Follow up with your PMD within 1-2 days. REturn to ED if feel worse. Prescriptions: Famotidine [Pepcid] 20 mg PO BID #20 tab ALPRAZolam [Xanax] 0.25 mg PO BID #10 tab Ondansetron ODT [Zofran ODT] 4 mg PO .Q4-6H PRN #20 odt PRN Reason: Nausea/Vomiting Instructions: Anxiety, Adult (DC), Viral Gastroenteritis, Adult (DC) Forms: [facility] ([place]) - Clinical Impression Clinical Impression: Anxiety, Gastroenteritis - PA / COLD HEADER / Resident Statement MD/DO has reviewed & agrees with the documentation as recorded. - Scribe Statement The provider has reviewed the documentation as recorded by the Scribe (Winter Nelson) All medical record entries made by the Scribe were at my direction and pers onally dictated by me. I have reviewed the chart and agree that the record accurately reflects my personal performance of the history, physical exam, medical decision making, and the department course for this patient. I have also personally directed, reviewed, and agree with the discharge instructions and disposition.
[2017-12-07 17:12] LABS: BLOOD UREA NITROGEN 6 mg/dL (7-17); CALCIUM 8.7 mg/dl (8.6-10.4); GFR NON-AFRICAN AMERICAN > 60
--- NOTE | 2017-12-07 17:14 | RAD ---
Date of service: 12/07/2017 HISTORY: ? infiltrate on abdominal CT COMPARISON: Chest radiograph dated 10/28/2015. TECHNIQUE: Chest PA and lateral FINDINGS: LUNGS: No active pulmonary disease. PLEURA: No significant pleural effusion identified. No pneumothorax apparent. CARDIOVASCULAR: No aortic atherosclerotic calcification present. Normal cardiac size. No pulmonary vascular congestion. OSSEOUS STRUCTURES: No significant abnormalities. VISUALIZED UPPER ABDOMEN: Normal. OTHER FINDINGS: None. IMPRESSION: Cluster of right lower lobe nodules described on CT scan not clearly identified on the current examination, likely due to differences in modality.
[2017-12-07 17:27] VITALS: PULSE 20; TEMP 98
== END 2017-12-07 17:25 | disposition home or self-care (01) ==
LOC: C.ER 08:36
DX: K52.9 Noninfective gastroenteritis and colitis, unspecified (principal); F41.9 Anxiety disorder, unspecified
CPT/HCPCS: 71046; 74177; 80053; 80324; 80345; 80346; 80349; 80353; 80358; 80361; 81001; 83690; 83992; 84703; 85025; 96361; 96374; 96375; 96376; 99285; C9113; J2060; J2405; J2765; J7030; J7120; Q9967

== ENCOUNTER 2018-03-03 15:07 | Emergency (ER) | payer OTHER ==
[2018-03-03 15:07] VITALS: BMI 28.3
[2018-03-03 15:29] VITALS: RESP 18; O2SAT 100
--- NOTE | 2018-03-03 16:36 | C.PDOC ---
History Of Present Illness 22 yr old F p/w abdominal pain. Pt notes abdominal pain x2d, after her period started, suprapubic, without radiation. She notes nausea but no vomiting episodes. She notes mild constipation, but denies any dark or bloody stool. She notes that her pain feels similiar but a little different from her normal period pain. No intermittent stabbing pain. No chest pain or sob. No fever, chills or night sweats. She noted a mild ACRVALHO which has now resolved. No ETOH or trauma. No other complaints. Time Seen by Provider: 03/03/18 16:35 Chief Complaint (Nursing): Abdominal Pain Past Medical History Vital Signs: Last Vital Signs Temp 97.7 F 03/03/18 15:26 Pulse 74 03/03/18 15:26 Resp 18 03/03/18 15:26 BP 112/74 03/03/18 15:26 Pulse Ox 100 03/03/18 15:26 - Medical History PMH: Anxiety, Depression, HTN, Migraine Denies: HIV, Seizures, Sexually Transmitted Disease - [facility] Procedures DELIVERY OF PRODUCTS OF CONCEPTION, EXTERNAL APPROACH (04/03/17) MONITORING OF POC, CARDIAC RATE, GREASE PRESS HELPER APPROACH (04/03/17) Family History: States: Unknown Family Hx - Social History Hx Tobacco Use: No Hx Alcohol Use: No Hx Substance Use: No - Immunization History Hx Tetanus Toxoid Vaccination: No Hx Influenza Vaccination: No Hx Pneumococcal Vaccination: No Review Of Systems Constitutional: Negative for: Fever, Chills Eyes: Negative for: Pain, Vision Change ENT: Negative for: Ear Pain, Ear Discharge, Nose Congestion, Mouth Pain Cardiovascular: Negative for: Chest Pain, Palpitations Respiratory: Negative for: Cough, Shortness of Breath Gastrointestinal: Positive for: Nausea, Abdominal Pain. Negative for: Vomiting, Diarrhea, Melena, Hematochezia, Hematemesis Genitourinary: Positive for: Vaginal Bleeding (period, normal). Negative for: Dysuria, Frequency, Hematuria Musculoskeletal: Negative for: Neck Pain, Shoulder Pain Skin: Negative for: Rash, Lesions Neurological: Negative for: Weakness, Numbness, Incoordination Psych: Negative for: Anxiety, Depression Physical Exam - Physical Exam Appears: Well, Non-toxic, No Acute Distress Skin: Normal Color, Warm Head: Atraumatic, Normacephalic Eye(s): bilateral: Normal Inspection Nose: Normal, No Flaring Tongue: Normal Appearing Lips: Normal Appearing Teeth: Normal Dentition Throat: Normal, No Erythema, No Exudate, No Drooling Neck: Normal, Normal ROM Cardiovascular: Rhythm Regular Respiratory: Normal Breath Sounds Gastrointestinal/Abdominal: Bowel Sounds (normal), Soft, Tenderness (LUQ, suprapubic), No Organomegaly, No Mass, No Distention, No Guarding Back: Normal Inspection, No CVA Tenderness, No Vertebral Tenderness Extremity: Normal ROM, No Tenderness Neurological/Psych: Oriented x3, Normal Speech, Normal Cognition Gait: Steady ED Course And Treatment - Laboratory Results Result Diagrams: 03/03/18 17:39 03/03/18 17:39 O2 Sat by Pulse Oximetry: 100 Medical Decision Making Medical Decision Making: Well appearing 22 yr old F p/w suprapubic abd pain and LUQ abd pain on exam. Non-intermittent abdominal pain. Largely benign exam. No rebound tenderness. Neg preg, neg UA. +blood 2/2 current period. No other abnl vaginal d/c. Tolerating clears. will d/c home with f/u and return indications Disposition - Disposition Referrals: [facility] [Outside] [facility] [Outside] [facility] [Outside] Laurel Mabry DO [Staff Provider] - Disposition: HOME/ ROUTINE Disposition Time: 18:38 Condition: GOOD Additional Instructions: DARINEL GONZALES, thank you for letting us take care of you today. Your provider was Lázaro Freeman and you were treated for HEADACHE/VOMITING/CRAMPS/WEAK. The emergency medical care you received today was directed at your acute symptoms. If you were prescribed any medication, please fill it and take as directed. It may take several days for your symptoms to resolve. Return to the Emergency Department if your symptoms worsen, do not improve, or if you have any other problems. Please contact your doctor or call one of the physicians/clinics you have been referred to that are listed on the Patient Visit Information form that is included in your discharge packet. Bring any paperwork you were given at discharge with you along with any medications you are taking to your follow up visit. Our treatment cannot replace ongoing medical care by a primary care provider outside of the emergency department. Thank you for allowing the [facility] team to be part of your care today. If you had an X-Ray or CT scan: A Radiologist will review the ED reading if any change in treatment is needed we will contact you. If you had a blood, urine, or wound culture: It will take several days for the results, if any change in treatment is needed we will contact you. If you had an STI test: It will take 48 hours for the results. Please call after 1 week if you have not heard back. Instructions: Painful Periods, Gastritis Forms: [facility] ([place]) - Clinical Impression Clinical Impression: Period pain, Gastritis
[2018-03-03] MEDS ORDERED: Sodium Chloride 0.9% 1,000 ML IV ONE (16:56)
[2018-03-03] MEDS ORDERED: Sodium Chloride 0.9% 1,000 ML ONE (17:42)
[2018-03-03 17:51] LABS: BASO # 0.1 K/uL (0.0-0.2); EOS # 0.1 K/uL (0.0-0.7); EOS % 1.4 % (0.0-4.0); HEMOGLOBIN 13.3 g/dL (11.0-16.0); LYMPH # 1.5 K/uL (1.0-4.3); LYMPH % 29.2 % (20.0-40.0); MEAN CELL VOLUME 91.8 fL (81.0-99.0); MEAN CORPUSCULAR HEMOGLOBIN 29.9 pg (27.0-31.0); MEAN CORPUSCULAR HGB CONC 32.6 g/dL (33.0-37.0); MEAN PLATELET VOLUME 8.9 fL (7.2-11.7); MONO # 0.5 K/uL (0.0-0.8); MONO % 10.6 % (0.0-10.0); NEUT # 2.9 K/uL (1.8-7.0); NEUT % 57.8 % (50.0-75.0); NRBC % 0.1 % (0.0-2.0); RBC 4.46 Mil/uL (3.80-5.20); RED CELL DISTRIBUTION WIDTH 12.8 % (11.5-14.5)
[2018-03-03 17:54] LABS: WHITE BLOOD COUNT 5.1 K/uL (4.8-10.8)
[2018-03-03 18:10] LABS: SQUAMOUS EPITHIAL 5 /hpf (0-5); URINE BACTERIA RARE (<OCC); URINE BILIRUBIN NEGATIVE (NEGATIVE); URINE BLOOD 3+ (NEGATIVE); URINE CLARITY Clear (Clear); URINE COLOR Yellow (YELLOW); URINE GLUCOSE (UA) NORMAL (Normal); URINE LEUKOCYTE ESTERASE TRACE Leu/uL (Negative); URINE PROTEIN 1+ mg/dL (NEGATIVE)
[2018-03-03 18:15] LABS: BLOOD UREA NITROGEN 7 mg/dL (7-17); CALCIUM 8.5 mg/dl (8.6-10.4); GFR NON-AFRICAN AMERICAN > 60; LIPASE 49 U/L (23-300)
[2018-03-03 18:21] LABS: ALB/GLOB RATIO 1.7 (1.0-2.1); ALBUMIN 4.9 g/dL (3.5-5.0); ALT/SGPT 18 U/L (9-52); AST/SGOT 35 U/L (14-36)
[2018-03-03 19:05] VITALS: BP 123/85; PULSE 72; TEMP 97.8
== END 2018-03-03 19:26 | disposition home or self-care (01) ==
LOC: C.ER 15:07
DX: K29.70 Gastritis, unspecified, without bleeding (principal); N94.6 Dysmenorrhea, unspecified
CPT/HCPCS: 80053; 81001; 81025; 83690; 85025; 87804; 96360; 99285; J7030